=== PATIENT | female | born 1975 | race Caucasian/White ===

== ENCOUNTER 2022-12-20 10:44 | Day surgery (SDC) | payer OTHER ==
[~2022-12-20] VITALS: Ht 167.6 cm; Wt 94.1 kg
[~2022-12-20 10:44] MED LIST: LEVSOD150 PO; LEVSOD50; MECL12.5 PO; NITR100CA PO
--- NOTE | 2022-12-20 12:16 | NUR ---
12/20/22 1216 Barbie Gifford FOUR ATTEMPTS AT IV. FIRST ATTEMPT BY MA IN L AC INFILTRATED. SECOND ATTEMPT BY MA IN R WRIST INFILTRATED. THIRD ATTEMPT IN R AC BY RN INFILTRATED. FOURTH ATTEMPT BY RN IN L AC SUCESSFUL.
[2022-12-20 13:30] VITALS: BP 99/64
== END 2022-12-20 13:32 | disposition home or self-care (01) ==
LOC: ORSCSDS 10:44
PROVIDERS: Internal Medicine Gastroenterology
PROC: 0DJD8ZZ Inspection of Lower Intestinal Tract, Via Natural or Artificial Opening Endoscopic (ICD-10-PCS; principal; 2022-12-20 12:00)
DX: Z12.11 Encounter for screening for malignant neoplasm of colon (principal); E03.9 Hypothyroidism, unspecified; Z79.899 Other long term (current) drug therapy
CPT/HCPCS: J2704; J7120